=== PATIENT | female | born 1985 | race Caucasian/White ===

== ENCOUNTER 2016-06-25 20:20 | Emergency (ER) | payer BC, OTHER ==
--- NOTE | 2016-06-25 20:29 | PDOC ---
History of Present Illness - General History Source: Patient Exam Limitations: No Limitations - History of Present Illness Initial Comments: 06/25/16 20:53 The patient is a 30 year old female, with a significant past medical history of interstitial cystitis(urgency/no pain) and endometriosis(laparoscopic removal), who presents to the emergency department complaining of right upper quadrant abdominal pain for 3 days. The patient describes the pain as dull and constant. She rates the pain as a 6/10 and states that occasionally the pain increases in intensity. The patient reports the pain radiates into her right flank region. She states she has been experiencing associated decrease in appetite. She reports her pain is exacerbated when hunched over or lying on her sides, but alleviated when standing straight or lying flat. The patient reports 2 episodes of nonbloody diarrhea 2 days ago. She denies any nausea, vomiting, constipation , or changes in urination patterns. She reports chills, but denies any fever, headache, cough, or dizziness. PAST MEDICAL HISTORY: no significant history PAST SURGICAL HISTORY: Laparoscopic removal of the endometrium FAMILY HISTORY: no pertinent history SOCIAL HISTORY: Pt lives with family and is employed. MEDICATIONS: reviewed ALLERGIES: As per nursing notes Review of Systems: General: +Chills. No fevers, no weakness, no weight loss HEENT: No change in vision. No sore throat,. No ear pain CardioVascular: No chest pain or shortness of breath Respiratory:No cough, or wheezing. Gastrointestinal: +RUQ abdominal pain, diarrhea. No nausea, vomiting, or constipation, No rectal bleeding Genitourinary: No dysuria, hematuria, or frequency Musculoskeletal: No joint or muscle pain or swelling Neurologic: No headache, vertigo, dizziness or loss of consciousness Psychiatric: no depression Skin: No rashes or easy bruising Endocrine: no increased thirst or abnormal weight change Allergic: no skin or latex allergy All other systems reviewed and normal Exam: General: Well-nourished well-developed individual, no acute distress HEENT: Throat: Normal, tonsils normal, no erythema or exudate Neck: Supple, no meningeal signs, no lymphadenopathy Eyes::Pupils equal reactive and round, extraocular motion intact Chest: Nontender to palpation Cardiac: S1-S2 normal, regular rate and rhythm, no murmurs rubs or gallops Respiratory: Lungs clear to auscultation bilateral Abdomen: +Mild to moderate tenderness to palpation in the RUQ. +Mild tenderness to the RLQ and right flank, with no guarding or rebound. Nondistended. Normoactive bowel sounds. Extremities: Warm, dry, no cyanosis, clubbing, or edema Skin: No rashes Neuro: Alert and oriented x3, nonfocal exam, grossly intact, normal gait Psych: Normal mood and affect <RichardTahiracecelia - Last Filed: 06/25/16 20:53> - General History Source: Patient Exam Limitations: No Limitations - History of Present Illness Initial Comments: 06/25/16 21:56 06/25/16 21:50 A portion of this note was documented by scribe services under my direction. I have reviewed the details of the note, within reason, and agree with the documentation. The case summary and management plan written by me. CT scan no acute intra-abdominal pathology there is a small amount of free fluid in the pelvis that is most likely physiological however could've been secondary to a small ruptured cyst The appendix was not definitively identified however there was no inflammatory changes or anything on the CAT scan of acute appendicitis. Assessment spell and plan: This is a 30-year-old female comes in complaining of right-sided abdominal pain 3 days progressive. Patient's complaining also of some anorexia and decrease in her appetite. There is been no fevers or chills. Patient's white count is normal there is no left shift and her chemistries are all normal. On exam she had some mild tenderness along the right side of her abdomen however the tenderness was more diffuse than anything else. Patient did have a CAT scan that was normal however the appendix was not definitively identified but there was no evidence on CAT scan of acute appendicitis there was no inflammation or anything to indicate acute appendicitis. Given the fact the patient is had her symptoms now for 3 days and there is a normal white count and no fever is highly unlikely that this is appendicitis. There was a small amount of fluid in the pelvis most likely physiological however patient may have had a small ruptured cyst that could account for the fluid. Patient discharged was told to follow-up with her doctor patient given copies of her blood work and CAT scan. I think so comes in the event <Nasir Alaniz I - Last Filed: 06/25/16 21:58> - General Chief Complaint: Pain, Acute Stated Complaint: RLQ PAIN Time Seen by Provider: 06/25/16 20:25 Past History <Gilberto Ramos - Last Filed: 06/25/16 20:53> <Nasir Alaniz I - Last Filed: 06/25/16 21:58> - Past Medical History Allergies/Adverse Reactions: Allergies Allergy/AdvReac Type Severity Reaction Status Date / Time cefixime [From Suprax] Allergy Verified 06/25/16 20:23 erythromycin base Allergy Verified 06/25/16 20:22 Home Medications: Ambulatory Orders Meth/Meblue/Sod Phos/Psal/Hyos [Uribel Capsule] 1 each PO HS 06/25/16 Pentosan Polysulfate Sodium [Elmiron] 100 mg PO HS 06/25/16 *Physical Exam - Vital Signs Last Vital Signs Temp Pulse Resp BP Pulse Ox 98.1 F 70 16 116/74 100 06/25/16 20:26 06/25/16 20:26 06/25/16 20:26 06/25/16 20:26 06/25/16 20:26 <Gilberto Ramos - Last Filed: 06/25/16 20:53> ED Treatment Course - LABORATORY CBC & Chemistry Diagram: 06/25/16 20:40 06/25/16 20:40 - ADDITIONAL ORDERS Additional order review: Laboratory Results 06/25/16 20:30 Urine Color Yellow Urine Appearance Clear Urine pH 6.5 Ur Specific [place] 1.020 Urine Protein Negative Urine Glucose (UA) Negative Urine Ketones Negative Urine Blood Negative Urine Nitrite Negative Urine Bilirubin Negative Urine Urobilinogen 0.2 e.u/dl Ur Leukocyte Esterase Negative Urine HCG, Qual Negative - Medications Given in the ED: ED Medications Discontinued Medications Generic Name Dose Route Start Last Admin Trade Name Freq PRN Reason Stop Dose Admin Morphine Sulfate 2 mg 06/25/16 20:49 06/25/16 20:50 Morphine Injection - IVPUSH 06/25/16 20:50 2 mg NOW ONE Administration <Gilberto Ramos - Last Filed: 06/25/16 20:53> - LABORATORY CBC & Chemistry Diagram: 06/25/16 20:40 06/25/16 20:40 <Nasir Alaniz I - Last Filed: 06/25/16 21:58> *DC/Admit/Observation/Transfer - Attestations Scribe Attestion: 06/25/16 20:55 Documentation prepared by Gilberto Ramos, acting as medical coding technician for Nasir Alaniz MD. <Gilberto Ramos - Last Filed: 06/25/16 20:53> <Nasir Alaniz I - Last Filed: 06/25/16 21:58> Diagnosis at time of Disposition: Abdominal pain Qualifiers: Abdominal location: right lower quadrant Qualified Code(s): R10.31 - Right lower quadrant pain - Discharge Dispostion Disposition: HOME Condition at time of disposition: Stable - Patient Instructions Additional Instructions: It is important that you follow-up with your primary care doctor in a couple a days if you're not better. Take a copy of your CAT scan and blood work with you when you see your doctor You can take Tylenol or Motrin as needed for the pain. Return to the emergency department immediately with ANY new, persistent or worsening symptoms. Continue any medications as previously prescribed by your physician. . Please make sure your doctor reviews the results of your emergency evaluation. Thank you for coming to the Emergency Department today for your care. It was a pleasure to see you today. Please note that your evaluation is INCOMPLETE until you follow-up with your doctor.
[2016-06-25] MEDS ORDERED: SODIUM CHLORIDE 1,000 ML IV ONE (20:31)
[2016-06-25 20:33] VITALS: BP 116/74; PULSE 70; TEMP 98.1; BMI 28.7
[2016-06-25 20:39] LABS: PH,URINE 6.5 (4.5-8); URINE APPEARANCE Clear; URINE BILIRUBIN Negative (NEGATIVE); URINE BLOOD Negative (NEGATIVE); URINE GLUCOSE (UA) Negative (NEGATIVE); URINE KETONE Negative (NEGATIVE); URINE LEUK ESTERASE Negative (NEGATIVE); URINE NITRITE Negative (NEGATIVE); URINE PROTEIN Negative (NEGATIVE); URINE UROBILINOGEN 0.2 E.U/dl (0.2-1.0)
[2016-06-25 20:44] LABS: URINE COLOR YELLOW
[2016-06-25] MEDS ORDERED: morphine CARPU-JECT 10 MG/1 ML DISP.SYRIN ONE (20:46)
[2016-06-25] MEDS ORDERED: morphine CARPU-JECT 2 MG/1 ML DISP.SYRIN IVPUSH ONE (20:49)
[2016-06-25 20:54] LABS: BASOPHIL 0.5 % (0-2.0); EOSINOPHIL 2.5 % (0-4.5); MCH 27.9 pg (25.7-33.7); MCHC 33.4 g/dl (32.0-36.0); MEAN CELL VOLUME 83.4 fl (80-96); MEAN PLT VOLUME 7.7 fl (7.5-11.1); NEUTROPHILS 49.7 % (42.8-82.8); PLATELET COUNT 336 K/MM3 (134-434); RDW 12.7 % (11.6-15.6); WHITE BLOOD COUNT 7.8 K/mm3 (4.0-10.0)
[2016-06-25 21:07] LABS: ALBUMIN 4.3 g/dl (3.5-5.0); ALK PHOS 32 U/L (32-92); ANION GAP 9 (8-16); BILIRUBIN,TOTAL 0.5 mg/dl (0.2-1.0); CO2 25 mmol/L (22-28); CREATININE 0.8 mg/dl (0.6-1.3); GLUCOSE,RANDOM 98 mg/dl (74-106); SGOT/AST 15 U/L (10-42); SGPT/ALT 11 U/L (10-40); TOT PROT 6.7 g/dl (6.4-8.3)
== END 2016-06-25 22:03 | disposition home or self-care (01) ==
LOC: FER 20:20
PROC: 3E033NZ Introduction of Analgesics, Hypnotics, Sedatives into Peripheral Vein, Percutaneous Approach (ICD-10-PCS; principal; 2016-06-25)
PROC: 3E0337Z Introduction of Electrolytic and Water Balance Substance into Peripheral Vein, Percutaneous Approach (ICD-10-PCS; 2016-06-25)
DX: R10.31 Right lower quadrant pain (principal)
CPT/HCPCS: 36415; 74176-TC; 80053; 81003; 83690; 84703; 85025; 99282-25